=== PATIENT | female | born 1985 | race Caucasian/White ===

== ENCOUNTER 2016-06-02 16:29 | Emergency (ER) | payer OTHER | END 2016-06-02 17:05 | disposition home or self-care (01) | LOC: ER1 16:29 | DX: S39.012A Strain of muscle, fascia and tendon of lower back, initial encounter (principal); X58.XXXA Exposure to other specified factors, initial encounter | CPT/HCPCS: 96372; 99283; J1100; J1885 ==

== ENCOUNTER 2016-07-05 16:55 | Emergency (ER) | payer OTHER | END 2016-07-05 18:28 | disposition home or self-care (01) | LOC: ER1 16:55 | DX: T78.40XA Allergy, unspecified, initial encounter (principal); F17.290 Nicotine dependence, other tobacco product, uncomplicated; Z88.5 Allergy status to narcotic agent | CPT/HCPCS: 99284 ==